=== PATIENT | female | born 2000 | race Caucasian/White ===

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

== ENCOUNTER → 2018-01-17 14:41 | Outpatient (CLI) | payer OTHER, SELFPAY ==
--- NOTE | 2018-01-17 14:42 | US_ITS ---
US OB follow up: INDICATION: ITS.REASON: US OB Growth- EFW f/u US on Calcified Placenta ORDERING PHYSICIAN: Niya Ochoa MD PATIENT AGE: 17 years TECHNIQUE: ultrasound transabdominal scanning. COMPARISON: No previous relevant studies. FINDINGS: Single viable intrauterine gestation. Cephalic position. Placenta: Post placenta grade 3. There is average amount fluid. The cervix appears satisfactory. Closed and measuring 4 cm in length. Measurements: Average ultrasound age 26w5d. Gestational Age 26w3d. Estimated due date by ultrasound age 0204/20/2018. Estimated weight 901 grams. This is 28 percentile BPD = 27w0d OFD = 28w1d HC = 27w2d AC = 26w1d FL = 26w0d Growth Percentile= 28 percentile Heart Rate = 147bpm HC/AC is 1.17 (1.04-1.22). CI is 74% (70-86%). FL/BPD is 71% (71-87%). FL/AC is 22% (20-24%). IMPRESSION: There is a single live fetus which ended in cephalic presentation. heart and body motion noted with an average ultrasound age of 26 weeks and 5 days. Estimated weight is 901 g which is 28 percentile. Placenta is posterior and grade 3.
== END ==
PROVIDERS: Visit Provider Obstetrics & Gynecology
DX: O36.5990 Maternal care for other known or suspected poor fetal growth, unspecified trimester, not applicable or unspecified (principal)
CPT/HCPCS: 76816

== ENCOUNTER 2018-02-10 17:52 | Outpatient (CLI) | payer OTHER, SELFPAY ==
[2018-02-10 18:03] VITALS: BMI 28.9
[2018-02-10 18:24] LABS: Microscopic, Urine URINE MICROSCOPIC (MICROSCOPIC)
[2018-02-10 18:25] VITALS: BP 133/79; PULSE 106; RESP 20; TEMP 36.8; O2SAT 99; BMI 28.9
[2018-02-10 18:25] LABS: Appearance,Urine SL CLOUDY (Clear); Bilirubin,Urine Negative (Negative); Blood, Urine Negative (Negative); Color,Urine YELLOW (Yellow); Glucose,Urine (UA) Negative (Negative); Ketones,Urine TRACE (Negative); Leukocyte Esterase,Urine Negative (Negative); Nitrate,Urine Negative (Negative); PH,Urine 6.5 (5.0-8.5); Protein,Urine Negative (Negative)
[2018-02-10 18:28] LABS: Mucus,Urine Trace /lpf; Squamous Epithelial Cell,Urine 50-100 #/hpf (0-5)
[2018-02-10 18:29] LABS: Amorphous Sediment,Urine Trace /lpf
== END 2018-02-10 19:05 | disposition home or self-care (01) ==
LOC: OBOUT 17:54 → OB 17:55
PROVIDERS: Visit Provider Obstetrics & Gynecology
DX: Z34.90 Encounter for supervision of normal pregnancy, unspecified, unspecified trimester (principal)
CPT/HCPCS: 59025; 81001

== ENCOUNTER → 2018-03-15 08:41 | Outpatient (CLI) | payer OTHER, SELFPAY ==
--- NOTE | 2018-03-15 08:44 | US_ITS ---
US OB biophysical profile, US OB follow up: Indication: ITS.REASON: US OB BPP Growth SD Ratio ORDERING PHYSICIAN: Niya Ochoa MD PATIENT AGE: 17 years COMPARISON: 01/17/2018 FINDINGS: The following parameters are obtained: Average ultrasound age is 33 weeks 6 days. Estimated weight is 2275 g which is 24 percentile BPD: 34 weeks 2 days OFD: 34 weeks 3 days HC: 33 weeks 6 days AC: 34 weeks 2 days FL: 33 weeks 0 days heart rate: 146 bpm. HC/AC: 1.01 Cephalic index: 79% FL/BPD: 75% FL/AC: 21% Amniotic fluid index: 13 cm Qualitative AFV: 2 breathing movements: 2 Gross body movements: 2 Tone: 2 Biophysical profile score: 8/8 No obvious anomalies evident. Placenta: Posterior grade 3 placenta. No previa Cervix: Closed and measures 3 cm IMPRESSION: There is a single live fetus which is in cephalic presentation with an average ultrasound age of 33 weeks and 6 days. KELSEY is normal at 13 cm. Biophysical profile 8 of 8. Posterior grade 3 placenta
[2018-03-15 10:19] LABS: Hematocrit 28.2 % (37.0-47.0); Hemoglobin 8.8 g/dL (12.2-16.2)
== END ==
PROVIDERS: Visit Provider Obstetrics & Gynecology
DX: O43.109 Malformation of placenta, unspecified, unspecified trimester (principal)
CPT/HCPCS: 36415; 76816; 76819; 85014; 85018

== ENCOUNTER → 2018-03-15 09:54 | Outpatient (CLI) | payer OTHER, SELFPAY | PROVIDERS: Visit Provider Obstetrics & Gynecology | DX: O99.012 Anemia complicating pregnancy, second trimester (principal) | CPT/HCPCS: 36415; 85014; 85018 ==

== ENCOUNTER → 2018-03-22 16:37 | Outpatient (CLI) | payer OTHER, SELFPAY ==
[2018-03-28 12:58] LABS: Neisseria gonorrhoeae, NAA Negative (Negative)
== END ==
PROVIDERS: Visit Provider Obstetrics & Gynecology
DX: O09.899 Supervision of other high risk pregnancies, unspecified trimester (principal); Z34.90 Encounter for supervision of normal pregnancy, unspecified, unspecified trimester
CPT/HCPCS: 86403; 87491; 87591

== ENCOUNTER → 2018-03-31 13:28 | Outpatient (CLI) | payer OTHER, SELFPAY ==
[2018-03-31 14:08] LABS: D-Dimer 828 ng/mL (0-400)
[2018-03-31 14:09] LABS: Activated Partial Thrombo Time 25.4 seconds (23.6-34.0); Fibrinogen 463 mg/dL (204-500); INR 0.93 (0.9-1.1); Prothrombin Time 9.6 seconds (9.4-11.8)
[2018-03-31 14:54] LABS: Basophils % 0.3 % (0.1-2.0); Eosinophils # 0.1 K/mm3 (0.0-0.4); Eosinophils % 1.2 % (0.1-12.0); Hematocrit 26.4 % (37.0-47.0); Hemoglobin 8.8 g/dL (12.2-16.2); Lymphocytes # 1.1 K/mm3 (0.7-4.5); Lymphocytes % 15.5 % (10-50); Mean Corpuscular HGB Conc 33.4 g/dL (31.8-35.4); Mean Corpuscular Hemoglobin 26.1 pg (27.0-31.2); Mean Corpuscular Volume 78.2 fl (81-99); Mean Platelet Volume 7.7 fl (7.4-10.4); Monocytes # 0.2 K/mm3 (0.1-1.0); Neutrophils # 5.7 K/mm3 (1.8-7.8); Neutrophils % 80.1 % (37.0-80.0); Platelet Count 199 K/mm3 (142-424); Red Blood Count 3.37 M/mm3 (4.20-5.40); Red Cell Distribution Width 16.1 % (11.5-17.5); White Blood Count 7.1 K/mm3 (4.5-13.0)
[2018-03-31 15:06] LABS: Alanine Aminotransferase 15 U/L (12-78); Anion Gap 16.6 mEq/L (5-15); Aspartate Amino Transferase 13 U/L (15-37); Blood Urea Nitrogen 8 mg/dL (7-18); Calcium 8.5 mg/dL (8.5-10.1); Carbon Dioxide 20 mmol/L (21.0-32.0); Chloride 103 mmol/L (98-107); Creatinine,Serum 0.57 mg/dL (0.55-1.02); Estimated Glomerular Filt Rate 137 ml/min (>60); GFR (African American) 165 ML/MIN (>60); Glucose 129 mg/dL (74-106); Potassium 3.6 mmoL/L (3.5-5.1); Sodium 136 mmol/L (136-145); Uric Acid 3.8 mg/dL (2.6-7.2)
[2018-03-31 16:19] LABS: Creatinine,Urine Random 102 mg/dL (20-320); Total Protein,Urine Random 23.6 mg/dL (0.0-11.9)
[2018-03-31 16:47] LABS: Collection Time,Urine 24 hours; Creatinine 24 Hour,Urine 918 mg/24hr (630-2500); Total Protein 24 Hour,Urine 212 mg/24 hr (40-90); Total Volume,Urine 900 mL (600-1600)
[2018-03-31 16:49] LABS: Creatinine Clearance Urine 101.2 mL/min (25-115); Patient Height,Urine 65 inches; Patient Weight,Urine 186 lbs
== END ==
PROVIDERS: Visit Provider Obstetrics & Gynecology
DX: O13.9 Gestational [pregnancy-induced] hypertension without significant proteinuria, unspecified trimester (principal)
CPT/HCPCS: 36415; 80048; 82575; 84155; 84450; 84460; 84550; 85025; 85378; 85384; 85610; 85730

== ENCOUNTER 2018-04-02 11:44 | Outpatient (CLI) | payer OTHER, SELFPAY ==
[2018-04-02 12:02] VITALS: BP 134/77; PULSE 114; RESP 18; TEMP 36.7; O2SAT 98; BMI 30.9
== END 2018-04-02 13:00 | disposition home or self-care (01) ==
LOC: OBOUT 11:46 → OB 11:47
PROVIDERS: Visit Provider Obstetrics & Gynecology
DX: O13.3 Gestational [pregnancy-induced] hypertension without significant proteinuria, third trimester (principal); Z3A.37 37 weeks gestation of pregnancy
CPT/HCPCS: 59025

== ENCOUNTER → 2018-04-06 13:48 | Outpatient (CLI) | payer OTHER, SELFPAY ==
--- NOTE | 2018-04-06 13:51 | US_ITS ---
US OB biophysical profile: Indication: ITS.REASON: US OB- BPP S/D Ratio-Grade 3 Placenta PIH ORDERING PHYSICIAN: Delonte Barrera MD PATIENT AGE: 17 years FINDINGS: The following parameters are obtained: There is a single live fetus present in cephalic presentation. heart tones are noted with heart rate of 142 bpm Average ultrasound age is 37w5d. Estimated due date by ultrasound is 04/22/2018. Estimated weight is Estimated weight Amniotic fluid index: 14 cm Qualitative AFV: 2 breathing movements: 2 Gross body movements: 2 Tone: 2 Biophysical profile score: 8/8 Placenta: Post/Lat GR 3 Cervix: Appears closed and measures 3 cm IMPRESSION: Single live intrauterine gestation in cephalic presentation. breathing movement noted Biophysical profile 8 of a with normal amniotic fluid index Posterior lateral grade 3 placenta
== END ==
PROVIDERS: Visit Provider Nurse Practitioner Obstetrics & Gynecology
DX: O13.9 Gestational [pregnancy-induced] hypertension without significant proteinuria, unspecified trimester (principal); O43.109 Malformation of placenta, unspecified, unspecified trimester
CPT/HCPCS: 76819

== ENCOUNTER 2018-04-06 21:18 | Inpatient (IN) ==
[2018-04-06 22:17] LABS: Basophils % 0.2 % (0.1-2.0); Eosinophils % 0.4 % (0.1-12.0); Hemoglobin 8.8 g/dL (12.2-16.2); Lymphocytes # 1.3 K/mm3 (0.7-4.5); Mean Corpuscular HGB Conc 31.8 g/dL (31.8-35.4); Mean Corpuscular Hemoglobin 25.3 pg (27.0-31.2); Mean Corpuscular Volume 79.7 fl (81-99); Mean Platelet Volume 9.2 fl (7.4-10.4); Monocytes # 0.3 K/mm3 (0.1-1.0); Monocytes % 3.6 % (1.7-9.3); Neutrophils # 6.9 K/mm3 (1.8-7.8); Neutrophils % 80.8 % (37.0-80.0); Platelet Count 198 K/mm3 (142-424); Red Blood Count 3.46 M/mm3 (4.20-5.40); Red Cell Distribution Width 16.4 % (11.5-17.5); White Blood Count 8.5 K/mm3 (4.5-13.0)
[2018-04-06 22:19] LABS: Hematocrit 27.6 % (37.0-47.0)
[2018-04-06 22:28] LABS: Anion Gap 14.5 mEq/L (5-15); Calcium 9.1 mg/dL (8.5-10.1); Potassium 3.5 mmoL/L (3.5-5.1); Uric Acid 3.1 mg/dL (2.6-7.2)
[2018-04-06 22:36] LABS: Microscopic, Urine URINE MICROSCOPIC (MICROSCOPIC)
[2018-04-06 22:38] LABS: Appearance,Urine CLEAR (Clear); Bilirubin,Urine Negative (Negative); Blood, Urine 2+ (Negative); Color,Urine YELLOW (Yellow); Glucose,Urine (UA) Negative (Negative); Ketones,Urine Negative (Negative); Leukocyte Esterase,Urine TRACE (Negative); PH,Urine 8.5 (5.0-8.5); Protein,Urine Negative (Negative)
[2018-04-06 22:45] LABS: Activated Partial Thrombo Time 25.4 seconds (23.6-34.0); INR 0.91 (0.9-1.1); Prothrombin Time 9.4 seconds (9.4-11.8)
[2018-04-06 23:08] LABS: Squamous Epithelial Cell,Urine 20-50 #/hpf (0-5)
--- NOTE | 2018-04-07 17:36 | Progress Note ---
[facility] Anesthesia Checklist - Patient Identification Patient Identification: Arm Band, Verbal (Name & ) - Structural Data Admitted From: Inpatient Planned Operative Procedure/s: labor epidural - Additional verifications Patient : Yes Anesthesia Reactions: No Hx Blood Transfusions: No Blood Transfusion Reaction: No Cephalosporin Allergy: No Previous Colonoscopy: No - Cardiovascular Assessment Heart Sounds: S1 & S2 Pulse Strength: Baseline Pulse Rhythm: Regular Peripheral Edema: No - Airway Assessment C-Spine Mobility Assessed: Yes TMJ Mobility Assessed: Yes Dentition: Good Dentition - Neurological Assessment Level of Consciousness: Awake, Alert, Appropriate Hx Seizures: No Numbness or tingling in extremities: No - Anesthesia Plan Anesthesia Risk discussed: Yes Anesthesia Plan: Verified ASA Class: II Anesthesia Type: Epidural [facility] History I have reviewed the patient's past medical history: Yes Medical History: Denies:: Anxiety, Depression, Migraine, MRSA, Seizures Have you ever received a pneumonia vaccine?: No Have you received a flu vaccine this season?: Yes Other Surgeries: Yes: No Previous Surgery. No: Amputation: No Fractures: No - *Social History Educational Level: Completed High School Smoking Status: Never smoker Alcohol Intake: never Substance Use Type: denies use Occupational Status: employed Housing: house Household Members: family Travel in the last 8 weeks: None - Psychiatric History Expresses thoughts of harming self/others: None Suicide Plan Description: No Plan Pschychiatric History:: Denies:: Anxiety, Depression *Family Hx:: Cancer Para: 0
--- NOTE | 2018-04-07 23:01 | History & Physical Report ---
OB - H&P: HPI Antepartum - History of Present Illness Chief complaint: elevated blood pressure History of present illness: 17 year old G1 @ 37 2 presented to triage late last night with complaint of elevated blood pressure. Patient has been on bedrest for 2 weeks with intermittently elevated blood pressures. 24 hour urine total protein was less than 300mg and serum PIH labs were negative. She was given a Rx for blood pressure cuff and advised to check BP several times/day. Last night, she had a reading of 160/100 and presented to triage for evaluation. BP here was 140-150 and she was kept for IOL for PIH at term. Favorable cervix 2cm. Other complications of include late presentation with first visit at 20+ wks, + gonorrhea and + chlamydia noted on labs at 20 wks, moderate anemia with Hgb 8.8 antepartum and grade 2 placenta noted as early as 20 wks. Grade 3 placenta noted on f/u ultrasound 34 wks. Never smoker, normal KELSEY and reassuring testing. - History of Present Obstetrical complications: gestational hypertension, other (late presentation 20w, severe anemia, gonorrhea, chlamydia, grade 2-3 placenta) - Labs GBS status: negative [facility] History I have reviewed the patient's past medical history: Yes Medical History: Denies:: Anxiety, Depression, Migraine, MRSA, Seizures Have you ever received a pneumonia vaccine?: No Have you received a flu vaccine this season?: Yes Other Medical History: Reports: Anemia. Denies: Blood Transfusion Reaction Other Surgeries: Yes: No Previous Surgery. No: Amputation: No Fractures: No - *Social History Educational Level: Completed High School Smoking Status: Never smoker Alcohol Intake: never Substance Use Type: denies use Occupational Status: employed Housing: house Household Members: family Travel in the last 8 weeks: None - Psychiatric History Expresses thoughts of harming self/others: None Suicide Plan Description: No Plan Pschychiatric History:: Denies:: Anxiety, Depression *Family Hx:: Cancer Para: 0 Review of Systems - Review of Systems CONSTITUTIONAL: no fever/chills HEENT: no visual changes PULMONARY: no shortness of breath or difficulty breathing CV: no racing heart, palpitations or chest pain ABD: no abdominal pain, N/V : irreg ctx; no vb or lof SKIN: no new rash or skin lesions EXT: no edema NEURO: no headache PSYCH: no current anxiety/depression OB: normal FM Meds Home Medications Medication Instructions Recorded Confirmed Type 1 tab PO DAILY 12/06/17 04/05/18 History vitamin,calcium,xqomdxta-[id number] acid tablet ferrous sulfate 325 mg (65 mg 325 mg PO DAILY 12/12/17 04/05/18 History iron) tablet,delayed release labetalol 100 mg tablet 100 mg PO BID #60 tab 04/05/18 04/05/18 Rx miscellaneous medical supply misc See Dose Instructions .ROUTE 04/05/18 04/05/18 Rx .MEDSUPPLY #1 each Allergies Allergy/AdvReac Type Severity Reaction Status Date / Time NKDA Allergy Unknown Uncoded 04/05/18 14:33 OB - H&P: Exam - Physical Exam Vital signs: Temp Pulse Resp BP Pulse Ox 98.2 F 94 H 18 142/95 H 98 04/06/18 21:46 04/06/18 21:46 04/06/18 21:46 04/06/18 21:46 04/06/18 21:46 Narrative: CONSTITUTIONAL: no acute distress HEENT: mucous membranes moist PULMONARY: breathing unlabored without audible wheezes CV: no tachycardia or visible JVD; normal LE peripheral pulses ABD: soft, NT/ND, no guarding. Gravid uterus. : cervix 2/50/-2 SKIN: no visible rash or lesions HEME: no lymphadenopathy EXT: 1+ edema LEs NEURO: alert/oriented, no altered mental status PSYCH: appropriate mood and demeanor without visible anxiety/depression NST: Basline: 140 Variability: moderate Accelerations: yes Decelerations: intermittent mild variable decelerations; no late decelerations Impression: Reactive, Category 1 OB - Results - Labs Labs: Short CBC 04/06/18 Range/Units 22:10 WBC 8.5 (4.5-13.0) K/mm3 Hgb 8.8 L (12.2-16.2) g/dL Hct 27.6 L (37.0-47.0) % Plt Count 198 (142-424) K/mm3 BMP 04/06/18 22:10 Sodium 136 Potassium 3.5 Chloride 104 Carbon Dioxide 21 BUN 8 Creatinine 0.51 L Glucose 114 H Calcium 9.1 Liver Function 04/06/18 Range/Units 22:10 AST 10 L (15-37) U/L ALT 15 (12-78) U/L Urine 04/06/18 Range/Units 21:30 Urine Color Yellow (Yellow) Urine Appearance Clear (Clear) Urine pH 8.5 (5.0-8.5) Ur Specific [place] 1.010 (1.005-1.030) Urine Protein Negative (Negative) Urine Glucose (UA) Negative (Negative) OB - A/P Antepartum (1) 37 weeks gestation of Current visit: Yes Status: Acute (2) Hypertension complicating Current visit: Yes Status: Acute (3) Late care affecting in second trimester Current visit: Yes Status: Acute (4) High risk teen Current visit: Yes Status: Acute (5) Placental abnormality, antepartum Problem details: 20 wk US: "Placenta is posterior and grade 2 and appears more mature than expected for a 20 week gestation" Current visit: Yes Status: Acute (6) Gonorrhea affecting Current visit: Yes Status: Acute (7) Chlamydia infection affecting Current visit: Yes Status: Acute (8) Anemia complicating , second trimester Problem details: Hgb 9.7 on 12/06/17 Current visit: Yes Status: Acute - Additional Plan Additional Information:: Admit to L&D Cervical ripening with cervidil followed by pitocin augmentation Continuous monitoring and BP monitoring Patient aware of elevated risk for blood transfusion following delivery
--- NOTE | 2018-04-07 23:24 | Procedure Note ---
- Delivery Note Delivery Date:: 04/07/18 Delivery Time:: 22:08 Anesthesia Type: Epidural Was labor medically induced?: Yes Induction method: per pitocin protocol Gestational age (weeks): 37 delivered prior to 39 weeks?: Yes Justification for early elective delivery:: Pre-eclampsia Gender: Female at 1 minute: 8 at 5 minutes: 9 Delivery Procedure:: Spontaneous vaginal delivery of vigorous liveborn female infant over intact perineum. Apgars: 8 & 9 Delivery uncomplicated; no nuchal cord or shoulder dystocia with delivery taken to warmer for nursing assessment and suction immediately after umbilical cord clamped/cut Placenta spontaneously expressed and examined; noted to be complete/intact. Grossly abnormal appearing. Vulva, vagina, and cervix inspected; 2nd degree laceration repaired with 2-0 vicryl in layers EBL: 400cc All sponge/needle/instrument counts correct at conclusion of procedure Disposition: Mom/baby stable to recovery in LDRP Placenta sent for pathology Laceration:: vaginal Placental Delivery Description: Spontaneous
[2018-04-08 05:56] LABS: Hematocrit 22.4 % (37.0-47.0); Hemoglobin 6.8 g/dL (12.2-16.2)
--- NOTE | 2018-04-08 15:33 | Progress Note ---
Internal Medicine - PN: Subj *Date: 04/08/18 *Time: 15:29 Interval history: PPD #1 No complaints Ambulating and voiding without difficulty Fannie reg diet Chronic anemia with initial Hgb at presentation for care 9.0 and Hgb at admission for delivery 8.8 EBL 400cc with delivery and Hgb PPD #1 6.8 Patient is asymptomatic with anemia, other than mild tachycardia Recommended transfusion with current Hgb and expectation for continued lochia, and patient accepted Finishing first unit PRBCs now with plan to give 2 total units and recheck Hgb early am Exam Vital signs and Labs for Last 24 Hours: Temp Pulse Resp BP Pulse Ox 98.2 F 106 H 20 132/93 H 98 04/08/18 15:20 04/08/18 15:20 04/08/18 15:20 04/08/18 15:20 04/08/18 15:20 Laboratory Results - last 24 hr 04/06/18 22:10: Blood Type O Positive, Antibody Screen Negative, Crossmatch (AHG) See Detail 04/08/18 05:40: Hgb 6.8 L*, Hct 22.4 L* I & O for Last 24 hours: Intake & Output 04/06/18 04/07/18 04/08/18 04/09/18 11:59 11:59 11:59 11:59 Intake Total 300 / 300 Balance 300 / 300 Weight 191 lb Narrative: CONSTITUTIONAL: no acute distress, pale appearing HEENT: mucous membranes moist PULMONARY: breathing unlabored without audible wheezes CV: + tachycardia; normal LE peripheral pulses ABD: soft, NT/ND, no guarding : fundus firm at/below umbilicus SKIN: no visible rash or lesions EXT: 1+ edema LEs NEURO: alert/oriented, no altered mental status PSYCH: appropriate mood and demeanor without visible anxiety/depression Assessment and Plan (1) 37 weeks gestation of Current visit: Yes Status: Acute Category: Medical Code(s): Z3A.37 - 37 weeks gestation of (2) Hypertension complicating Current visit: Yes Status: Acute Category: Medical Code(s): O16.9 - Unspecified maternal hypertension, unspecified trimester (3) Late care affecting in second trimester Current visit: Yes Status: Acute Category: Medical Code(s): O09.32 - Supervision of with insufficient care, second trimester (4) High risk teen Current visit: Yes Status: Acute Category: Medical (5) Placental abnormality, antepartum Problem details: 20 wk US: "Placenta is posterior and grade 2 and appears more mature than expected for a 20 week gestation" Current visit: Yes Status: Acute Category: Medical (6) Gonorrhea affecting Current visit: Yes Status: Acute Category: Medical (7) Chlamydia infection affecting Current visit: Yes Status: Acute Category: Medical Code(s): O98.819 - Other maternal infectious and parasitic diseases complicating , unspecified trimester; A74.9 - Chlamydial infection, unspecified (8) Chronic anemia Current visit: Yes Status: Acute Category: Medical Code(s): D64.9 - Anemia, unspecified (9) Acute blood loss anemia Current visit: Yes Status: Acute Category: Medical Code(s): D62 - Acute posthemorrhagic anemia - Assessment and plan all Dx Assessment and Plan for all problems:: Continue routine care Transfusion 2 units PRBCs Repeat Hgb 2 hours post transfusion and 5am tomorrow Continue Vijay
[2018-04-08 18:31] VITALS: BP 141/103
[2018-04-08 19:22] LABS: Hematocrit 29.7 % (37.0-47.0); Hemoglobin 9.7 g/dL (12.2-16.2)
[2018-04-09 05:41] LABS: Hemoglobin 8.7 g/dL (12.2-16.2)
[2018-04-09 05:42] LABS: Hematocrit 27.8 % (37.0-47.0)
--- NOTE | 2018-04-09 12:21 | Discharge Summary ---
General - General Admission date:: 04/06/18 Discharge date: 04/09/18 HPI HPI: G1 admitted at 37 2/7 with elevated BP and grade 3 placenta IOL cervidil/pitocin with uncomplicated Admission Hgb 8.8 with drop to 6.8 on PPD #1 Transfused 2 units PRBCs with post-transfusion Hgb 8.7 Discharged home on PPD #2 with instructions to continue [facility] Hospital Course Hospital Course: as per HPI Rhogam Administration: Not Indicated Objective Vital signs: Temp Pulse Resp BP Pulse Ox 98.2 F 110 H 18 141/103 H 100 04/08/18 18:28 04/08/18 18:28 04/08/18 18:28 04/08/18 18:28 04/08/18 18:28 Narrative: CONSTITUTIONAL: no acute distress HEENT: mucous membranes moist PULMONARY: breathing unlabored without audible wheezes CV: no tachycardia or visible JVD; normal LE peripheral pulses ABD: soft, NT/ND, no guarding : fundus firm at/below umbilicus SKIN: no visible rash or lesions EXT: 1+ edema LEs NEURO: alert/oriented, no altered mental status PSYCH: appropriate mood and demeanor without visible anxiety/depression Results Labs on day of discharge: Labs from last 24 hours 04/09/18 04/08/18 04/06/18 05:15 19:08 22:10 Hgb 8.7 L D 9.7 L D Hct 27.8 L 29.7 L Blood Type O Positive Antibody Screen Negative Crossmatch (AHG) See Detail DS: Diagnosis - Discharge Diagnosis (1) 37 weeks gestation of Status: Acute (2) Hypertension complicating Status: Acute (3) Late care affecting in second trimester Status: Acute (4) High risk teen Status: Acute (5) Placental abnormality, antepartum Status: Acute Problem details: 20 wk US: "Placenta is posterior and grade 2 and appears more mature than expected for a 20 week gestation" (6) Gonorrhea affecting Status: Acute (7) Chlamydia infection affecting Status: Acute (8) Chronic anemia Status: Acute (9) Acute blood loss anemia Status: Acute Discharge Plan - Patient Discharge Instructions ACTIVITY: Continue current activity DIET: regular diet - Follow up Plan Disposition: Home, Self-Retirement Medications: Home Medications Medication Instructions Recorded Confirmed Type ferrous sulfate 325 mg (65 mg 325 mg PO DAILY 10/02/18 01/27/19 History iron) tablet,delayed release Labetalol HCl 100 mg PO BID 04/08/18 04/08/18 History Pnv95/Iron Fum/Folic Acid 1 each PO DAILY 04/08/18 04/08/18 History [ Tablet] Prescriptions/Medication Reconciliation: Continue Pnv95/Iron Fum/Folic Acid [ Tablet] 1 each PO DAILY Labetalol HCl 100 mg PO BID No Action ferrous sulfate 325 mg (65 mg iron) tablet,delayed release 325 mg PO DAILY
== END 2018-04-09 13:12 | disposition home or self-care (01) | DRG 807 ==
LOC: OBOUT 21:18 → OB 21:22
PROVIDERS: ADMIT Obstetrics & Gynecology; ATTEND Obstetrics & Gynecology
CPT/HCPCS: 36415; 59025; 76819; 80048; 81001; 83735; 84450; 84460; 84550; 85014; 85018; 85025; 85378; 85384; 85610; 85730; 86850; P9016

== ENCOUNTER → 2018-05-24 10:49 | Outpatient (CLI) | payer OTHER, SELFPAY ==
[2018-05-28 13:28] LABS: Neisseria gonorrhoeae, NAA Negative (Negative)
== END ==
PROVIDERS: Visit Provider Obstetrics & Gynecology
DX: Z39.2 Encounter for routine postpartum follow-up (principal)
CPT/HCPCS: 87491; 87591

== ENCOUNTER → 2019-09-27 12:02 | Outpatient (CLI) | payer OTHER, SELFPAY | PROVIDERS: Visit Provider Obstetrics & Gynecology | DX: Z32.00 Encounter for pregnancy test, result unknown (principal) | CPT/HCPCS: 36415; 84702 ==

== ENCOUNTER → 2019-10-07 13:52 | Outpatient (CLI) | payer OTHER, SELFPAY ==
--- NOTE | 2019-10-07 13:55 | US_ITS ---
PROCEDURE: US OB >= 14 WEEKS FETUS CLINICAL INDICATION: US OB Dates- LMP 07/07/2019 COMPARISON: OBBIO US OB biophysical profile from 04/06/2018 FINDINGS: Single viable intrauterine gestation. Placenta: Anteriorplacenta. There is average amount fluid. The cervix appears satisfactory. Measurements: Average ultrasound age 13weeks 6days. Gestational Age 13weeks 6days Estimated due date by ultrasound age 0104/07/2020. Estimated weight 83g BPD = 13weeks 6days OFD = HC = 13weeks 6days AC = 13weeks 6days FL = 13weeks 6days Growth Percentile= 69Percent% Heart Rate = 163bpm HC/AC is 1.2 CI is 0.74 FL/BPD is 0.56 FL/AC is 0.18 Right ovary appears within normal limits. Left ovary is not well visualized. No adnexal mass or cyst is seen. IMPRESSION: Single alive intrauterine is seen with an estimated gestational age: 13 weeks 6 days and HASMUKH: 04/07/2020. Based on LMP gestational age: 13 weeks 1 day and HASMUKH: 04/12/2020. Dictated by: Akilah Robles 10/07/2019 15:09 Electronically signed by Akilah Robles in [facility] 10/07/2019 15:09
== END ==
PROVIDERS: Visit Provider Obstetrics & Gynecology
DX: O26.841 Uterine size-date discrepancy, first trimester (principal)
CPT/HCPCS: 76805

== ENCOUNTER → 2019-11-19 12:51 | Outpatient (CLI) | payer OTHER, SELFPAY ==
--- NOTE | 2019-11-19 12:51 | US_ITS ---
PROCEDURE: US OB /MATERNAL DETAIL CLINICAL INDICATION: US OB Complete Anatomy exam COMPARISON: US US OB >= 14 WEEKS FETUS from 10/07/2019 FINDINGS: Single viable intrauterine gestation. Cephalic position. Placenta: Anteriorplacenta grade 1. There is average amount fluid. The cervix appears satisfactory. Closed and measuring 4.8 cm transabdominal in length. Complete survey performed and was unremarkable on the submitted images as in PACS. No discrete anomalies identified on survey imaging by technologist. Active fetus. Three-vessel cord with satisfactory umbilical cord insertion. 4- chamber heart noted. Survey of brain & ventricles Unremarkable. Face and neck survey unremarkable. Diaphragm and chest views unremarkable. Abdomen: Both kidneys noted and unremarkable. Stomach noted and satisfactory. Spine: Survey of the spine satisfactory with no anomalies identified nor imaged. Both arms and legs noted. Amniotic Fluid: Adequate. Maternal adnexa: No significant findings. Measurements: Average ultrasound age 19weeks 6days. Gestational Age 20weeks Estimated due date by ultrasound age 0104/08/2020. Estimated weight 320g BPD = 20weeks OFD = 20weeks HC = 19weeks 1day AC = 20weeks FL = 20weeks Growth Percentile= 40Percent% Heart Rate = 156bpm Cerebellum = 20weeks Humerus = 20weeks 3days HC/AC is 1.12 CI is 0.8 FL/BPD is 0.69 FL/AC is 0.22 IMPRESSION: There is a live IUP in cephalic presentation with an average ultrasound age 19 weeks and 6 days. No obvious anomalies. Please see above for detail. Dictated by: Trevor Carrasco MD 11/20/2019 04:29 Trevor Carrasco MD in [facility] 11/20/2019 04:29
== END ==
PROVIDERS: Visit Provider Obstetrics & Gynecology
DX: Z36.0 Encounter for antenatal screening for chromosomal anomalies (principal)
CPT/HCPCS: 76811

== ENCOUNTER → 2019-11-21 09:56 | Outpatient (CLI) | payer OTHER, SELFPAY ==
[2019-11-25 13:35] LABS: Neisseria gonorrhoeae, NAA Negative (Negative)
== END ==
PROVIDERS: Visit Provider Obstetrics & Gynecology
DX: Z86.19 Personal history of other infectious and parasitic diseases (principal)
CPT/HCPCS: 87491; 87591

== ENCOUNTER → 2019-11-22 13:45 | Outpatient (CLI) | payer OTHER, SELFPAY ==
[2019-11-22 15:11] LABS: Basophils % 0.4 % (0.1-2.0); Eosinophils % 0.8 % (0.1-12.0); Hematocrit 28.6 % (37.0-47.0); Hemoglobin 9.4 g/dL (12.2-16.2); Lymphocytes # 0.9 K/mm3 (0.7-4.5); Lymphocytes % 22.9 % (10-50); Mean Corpuscular HGB Conc 32.8 g/dL (31.8-35.4); Mean Corpuscular Hemoglobin 24.1 pg (27.0-31.2); Mean Corpuscular Volume 73.6 fl (81-99); Mean Platelet Volume 8.9 fl (7.4-10.4); Monocytes # 0.2 K/mm3 (0.1-1.0); Monocytes % 5.1 % (1.7-9.3); Neutrophils # 2.7 K/mm3 (1.8-7.8); Neutrophils % 70.8 % (37.0-80.0); Platelet Count 146 K/mm3 (142-424); Red Blood Count 3.89 M/mm3 (4.20-5.40); Red Cell Distribution Width 16.4 % (11.5-17.5); White Blood Count 3.8 K/mm3 (4.8-10.8)
[2019-11-24 09:06] LABS: Covid-19 Nasal PCR Sendout UK Detected
[2019-11-24 11:23] LABS: Rapid Plasma Reagin Ab Titer Non Reactive (NonRea<1:1)
[2019-11-24 13:08] LABS: HIV Screen 4th Generation wRfx Non Reactive (Non Reactive)
[2019-11-24 13:11] LABS: Hepatitis B Surface Antigen Negative (Negative); Hepatitis C Antibody <0.1 s/co ratio (0.0-0.9)
[2019-11-25 13:35] LABS: Rubella Antibodies, IgG 1.35 index (Immune >0.99)
== END ==
PROVIDERS: Obstetrics & Gynecology; Visit Provider Nurse Practitioner Family
DX: Z34.90 Encounter for supervision of normal pregnancy, unspecified, unspecified trimester (principal)
CPT/HCPCS: 36415; 85025; 86592; 86703; 86762; 86850; 87340; 87380; G0432; U0003

== ENCOUNTER 2020-02-04 05:50 | Outpatient (CLI) | payer OTHER, SELFPAY ==
[2020-02-04 06:20] VITALS: BMI 27.4
[2020-02-04 06:37] LABS: Microscopic, Urine URINE MICROSCOPIC (MICROSCOPIC)
[2020-02-04 06:39] LABS: Appearance,Urine CLEAR (Clear); Bilirubin,Urine Negative (Negative); Blood, Urine Negative (Negative); Color,Urine YELLOW (Yellow); Glucose,Urine (UA) Negative (Negative); Ketones,Urine Negative (Negative); Leukocyte Esterase,Urine TRACE (Negative); Nitrate,Urine Negative (Negative); PH,Urine 7.5 (5.0-8.5); Protein,Urine Negative (Negative); Urobilinogen,Urine 0.2 EU/dl (0.2)
[2020-02-04 06:42] LABS: RBC,Urine Occasional #/hpf (0-3); Squamous Epithelial Cell,Urine Occasional #/hpf (0-5)
[2020-02-04 06:48] VITALS: BP 114/81; PULSE 90; RESP 18; TEMP 36.9; O2SAT 100; BMI 27.4
[2020-02-04 06:51] LABS: Barbiturates Screen,Urine Negative ng/ml (<200)
[2020-02-04 06:52] LABS: Amphetamine/Metha Screen,Urine Negative ng/ml (<1000); Benzodiazepines Screen,Urine Negative ng/ml (<200)
[2020-02-04 06:53] LABS: Cannabinoid Screen,Urine Negative ng/ml (<50)
[2020-02-04 06:54] LABS: Cocaine Screen,Urine Negative ng/ml (<300); Methadone Screen,Urine Negative ng/ml (<300)
[2020-02-04 06:55] LABS: Opiate Screen,Urine Negative ng/ml (<300); Phencyclidine Screen,Urine Negative ng/ml (<25)
== END 2020-02-04 09:40 | disposition home or self-care (01) ==
LOC: OBOUT 05:55 → OB 06:00
PROVIDERS: PCP Obstetrics & Gynecology; Visit Provider Nurse Practitioner Obstetrics & Gynecology
DX: O26.893 Other specified pregnancy related conditions, third trimester (principal); Z3A.31 31 weeks gestation of pregnancy; R10.32 Left lower quadrant pain
CPT/HCPCS: 59025; 80305; 81001; 96360; 96365; 96366; 96372; G0463

== ENCOUNTER → 2020-02-13 12:41 | Outpatient (CLI) | payer OTHER, SELFPAY ==
[2020-02-13 16:01] LABS: Glucose 1 Hour 152 mg/dL (74-100); Glucose,Fasting 86 mg/dl (74-100)
[2020-02-13 17:06] LABS: Basophils % 0.3 % (0.1-2.0); Eosinophils # 0.1 K/mm3 (0.0-0.4); Eosinophils % 0.7 % (0.1-12.0); Hematocrit 30.3 % (37.0-47.0); Hemoglobin 9.3 g/dL (12.2-16.2); Lymphocytes # 1.2 K/mm3 (0.7-4.5); Lymphocytes % 16.3 % (10-50); Mean Corpuscular HGB Conc 30.9 g/dL (31.8-35.4); Mean Corpuscular Hemoglobin 23.1 pg (27.0-31.2); Mean Platelet Volume 9.2 fl (7.4-10.4); Monocytes # 0.3 K/mm3 (0.1-1.0); Monocytes % 4.5 % (1.7-9.3); Neutrophils # 5.9 K/mm3 (1.8-7.8); Neutrophils % 78.2 % (37.0-80.0); Platelet Count 208 K/mm3 (142-424); Red Blood Count 4.04 M/mm3 (4.20-5.40); Red Cell Distribution Width 17.2 % (11.5-17.5); White Blood Count 7.5 K/mm3 (4.8-10.8)
== END ==
PROVIDERS: Visit Provider Obstetrics & Gynecology
DX: Z34.90 Encounter for supervision of normal pregnancy, unspecified, unspecified trimester (principal)
CPT/HCPCS: 36415; 82951; 85025

== ENCOUNTER → 2020-02-26 12:48 | Outpatient (CLI) | payer OTHER, SELFPAY ==
[2020-02-26 13:41] LABS: Glucose,Fasting 90 mg/dl (74-100)
[2020-02-26 15:37] LABS: Glucose 2 Hour 141 mg/dL (74-100)
[2020-02-26 15:58] LABS: Glucose 1 Hour 158 mg/dL (74-100)
[2020-02-26 16:33] LABS: Glucose 3 Hour 90 mg/dL (74-100)
== END ==
PROVIDERS: Visit Provider Obstetrics & Gynecology
DX: Z34.90 Encounter for supervision of normal pregnancy, unspecified, unspecified trimester (principal)
CPT/HCPCS: 36415; 82951

== ENCOUNTER 2020-03-24 23:45 | Outpatient (CLI) | payer OTHER, SELFPAY ==
[2020-03-24 23:56] VITALS: BMI 29.8
[2020-03-25 00:08] LABS: Microscopic, Urine URINE MICROSCOPIC (MICROSCOPIC)
[2020-03-25 00:19] LABS: Appearance,Urine CLEAR (Clear); Bilirubin,Urine Negative (Negative); Blood, Urine Negative (Negative); Color,Urine YELLOW (Yellow); Glucose,Urine (UA) Negative (Negative); Ketones,Urine Negative (Negative); Leukocyte Esterase,Urine Negative (Negative); Nitrate,Urine Negative (Negative); Protein,Urine Negative (Negative)
[2020-03-25 00:32] VITALS: BP 134/91; PULSE 97; RESP 18; TEMP 37.2; O2SAT 99; BMI 29.8
[2020-03-25 00:37] LABS: Amphetamine/Metha Screen,Urine Negative ng/ml (<1000)
[2020-03-25 00:38] LABS: Barbiturates Screen,Urine Negative ng/ml (<200); Benzodiazepines Screen,Urine Negative ng/ml (<200)
[2020-03-25 00:39] LABS: Cannabinoid Screen,Urine Negative ng/ml (<50)
[2020-03-25 00:40] LABS: Cocaine Screen,Urine Negative ng/ml (<300); Methadone Screen,Urine Negative ng/ml (<300)
[2020-03-25 00:41] LABS: Opiate Screen,Urine Negative ng/ml (<300)
[2020-03-25 00:42] LABS: Phencyclidine Screen,Urine Negative ng/ml (<25)
[2020-03-25 00:44] LABS: Bacteria,Urine Trace /lpf
[2020-03-25 01:29] VITALS: BP 133/88
== END 2020-03-25 01:30 | disposition home or self-care (01) ==
LOC: OBOUT 23:47 → OB 23:49
PROVIDERS: Visit Provider Obstetrics & Gynecology
DX: R10.31 Right lower quadrant pain (principal)
CPT/HCPCS: 59025; 80305; 81001; 96365; G0463

== ENCOUNTER → 2020-03-25 14:52 | Outpatient (CLI) | payer OTHER, SELFPAY ==
[2020-03-17 10:22] LABS: Neisseria gonorrhoeae, NAA Negative (Negative)
== END ==
PROVIDERS: Visit Provider Obstetrics & Gynecology
DX: Z34.90 Encounter for supervision of normal pregnancy, unspecified, unspecified trimester (principal)
CPT/HCPCS: 86403; 87491; 87591

== ENCOUNTER 2020-03-27 04:53 | Inpatient (IN) | payer OTHER, SELFPAY ==
[2020-03-27 05:01] VITALS: BMI 29.9
[2020-03-27 05:17] VITALS: BP 131/88; PULSE 99; RESP 18; TEMP 36.8; O2SAT 98; BMI 29.9
[2020-03-27 05:44] LABS: Microscopic, Urine URINE MICROSCOPIC (MICROSCOPIC)
[2020-03-27 06:21] LABS: Basophils % 0.3 % (0.1-2.0); Eosinophils # 0.1 K/mm3 (0.0-0.4); Eosinophils % 0.7 % (0.1-12.0); Hematocrit 30.5 % (37.0-47.0); Hemoglobin 9.7 g/dL (12.2-16.2); Lymphocytes % 14.8 % (10-50); Mean Corpuscular HGB Conc 31.8 g/dL (31.8-35.4); Mean Corpuscular Hemoglobin 23.8 pg (27.0-31.2); Mean Corpuscular Volume 74.9 fl (81-99); Mean Platelet Volume 8.8 fl (7.4-10.4); Monocytes # 0.6 K/mm3 (0.1-1.0); Monocytes % 4.6 % (1.7-9.3); Neutrophils # 10.7 K/mm3 (1.8-7.8); Neutrophils % 79.6 % (37.0-80.0); Platelet Count 215 K/mm3 (142-424); Red Blood Count 4.07 M/mm3 (4.20-5.40); Red Cell Distribution Width 19.8 % (11.5-17.5); White Blood Count 13.4 K/mm3 (4.8-10.8)
[2020-03-27 07:01] LABS: Appearance,Urine SL CLOUDY (Clear); Bilirubin,Urine Negative (Negative); Blood, Urine Negative (Negative); Color,Urine YELLOW (Yellow); Glucose,Urine (UA) Negative (Negative); Ketones,Urine Negative (Negative); Leukocyte Esterase,Urine TRACE (Negative); Nitrate,Urine Negative (Negative); Protein,Urine Negative (Negative)
[2020-03-27 07:14] LABS: Barbiturates Screen,Urine Negative ng/ml (<200); Benzodiazepines Screen,Urine Negative ng/ml (<200)
[2020-03-27 07:15] LABS: Amphetamine/Metha Screen,Urine Negative ng/ml (<1000); Methadone Screen,Urine Negative ng/ml (<300)
[2020-03-27 07:16] LABS: Cannabinoid Screen,Urine Negative ng/ml (<50)
[2020-03-27 07:17] LABS: Cocaine Screen,Urine Negative ng/ml (<300); Opiate Screen,Urine Negative ng/ml (<300)
[2020-03-27 07:18] LABS: Phencyclidine Screen,Urine Negative ng/ml (<25)
[2020-03-27 07:24] LABS: Coronavirus 19 IgG Antibody Positive (Negative); Coronavirus 19 IgM Antibody Negative (Negative)
[2020-03-27 07:59] LABS: Bacteria,Urine 1+ /lpf; RBC,Urine Occasional #/hpf (0-3)
--- NOTE | 2020-03-27 10:10 | HMH.OBAPHP ---
OB - H&P: HPI Antepartum - History of Present Illness Chief complaint: Induction of Labor History of present illness: 19 yo at 38 4/7 for IOL secondary to oligiohydramnios at term complicated by longstanding chronic anemia and recurrent chlamydia cervicitis (both pregnancies) Covid 19 infection during (november 2019) without complication KELSEY 7.9 on ultrasound performed in office during visit, and scheduled for induction Irregular contractions, cervix 2/50% Normal movement [facility] History I have reviewed the patient's past medical history: Yes Medical History: Denies:: Anxiety, Depression, Diabetes Mellitus Type 1, Hepatitis, Hypertension, Migraine, MRSA, Seizures *Have you ever received a pneumonia vaccine?: No *Have you received a flu vaccine this season?: Yes Other Medical History: Reports: Anemia, Blood Transfusion Reaction Anesthesia experience/problems:: nac Other Surgeries: Yes: No Previous Surgery. No: Amputation: No Fractures: No - *Social History Smoking Status: Never smoker Alcohol Intake: never Substance Use Type: denies use *Occupational Status:: unemployed Housing: house Household Members: family *Travel in the last 8 weeks: None - Psychiatric History Pschychiatric History:: Denies:: Anxiety, Depression Family Hx:: Cancer [employer] history: Additional [employer] History (Gonorrhea, Chlamydia) : 2 Para: 1 Review of Systems - Review of Systems Review of systems:: pertinent systems reviewed and negative unless documented below - *Respiratory Denies cough, Denies shortness of breath - *Genitourinary Reports other (irregular contractions), Denies abnormal vaginal bleeding Meds Home Medications Medication Instructions Recorded Confirmed Type prenat.vits,felicity,[id number] 1 tab PO DAILY 12/19/19 03/27/20 History Ferrous Sulfate 325 mg PO DAILY 03/27/20 03/27/20 History NIFEdipine [Procardia] 20 mg PO Q6H 03/27/20 03/27/20 History Allergies Allergy/AdvReac Type Severity Reaction Status Date / Time No Known Allergies Allergy Verified 03/26/20 15:43 OB - H&P: Exam - Physical Exam Vital signs: Temp Pulse Resp BP Pulse Ox 98.2 F 99 H 18 131/88 98 03/27/20 05:17 03/27/20 05:17 03/27/20 05:17 03/27/20 05:17 03/27/20 05:17 - Constitutional no acute distress - Routine HEENT Exam Head: Present: normocephalic Eye: Absent: conjunctival icterus ENT: Absent: mucous membranes moist - Routine Neck Exam Present: supple - Routine Respiratory Exam Present: CTA bilaterally. Absent: respiratory distress - Routine Cardiovascular Exam Present: RRR - Routine Abdominal Exam Present: soft. Absent: tenderness, distended - Routine Exam Comments: cervix 3/50 - Routine Extremities Exam Present: edema (1+) - Routine Skin Exam Present: pallor. Absent: rash - Routine Neurological Exam Present: alert, oriented X3 - Routine Psychiatric Exam Present: normal affect OB - Results - Labs Labs: Short CBC 03/27/20 Range/Units 05:20 WBC 13.4 H (4.8-10.8) K/mm3 Hgb 9.7 L (12.2-16.2) g/dL Hct 30.5 L (37.0-47.0) % Plt Count 215 (142-424) K/mm3 Urine 03/27/20 Range/Units 05:05 Urine Color Yellow (Yellow) Urine Appearance Sl cloudy (Clear) Urine pH 7.0 (5.0-8.5) Ur Specific [place] 1.020 (1.005-1.030) Urine Protein Negative (Negative) Urine Glucose (UA) Negative (Negative) OB - A/P Antepartum (1) 38 weeks gestation of Status: Acute (2) Oligohydramnios Status: Acute (3) Anemia complicating Status: Acute (4) COVID-19 affecting , antepartum Problem details: 11/23/19 Status: Acute (5) Chlamydia trachomatis infection during Status: Acute - Additional Plan Additional Information:: Admission for induction of labor Pitocin augmentation begun Amniotomy with clear fluid; planning intern
--- NOTE | 2020-03-27 12:26 | HMH.ANESCL ---
[facility] Anesthesia Checklist - Patient Identification Patient Identification: Arm Band - Structural Data Admitted From: Inpatient Planned Operative Procedure/s: labor epidural Consent for Planned Operative Procedure(s) Verified: Yes Verified Documents: Surgical Consent, History and Physical - Additional verifications Anesthesia Reactions: No Hx Blood Transfusions: No Blood Transfusion Reaction: No - Airway Assessment C-Spine Mobility Assessed: Yes TMJ Mobility Assessed: Yes Dentition: Good Dentition - Neurological Assessment Level of Consciousness: Awake, Alert - Anesthesia Plan Anesthesia Risk discussed: Yes Anesthesia Plan: Verified ASA Class: II Anesthesia Type: Epidural [facility] History I have reviewed the patient's past medical history: Yes Medical History: Denies:: Anxiety, Depression, Diabetes Mellitus Type 1, Hepatitis, Hypertension, Migraine, MRSA, Seizures *Have you ever received a pneumonia vaccine?: No *Have you received a flu vaccine this season?: Yes Other Medical History: Reports: Anemia. Denies: Blood Transfusion Reaction Anesthesia experience/problems:: nac Other Surgeries: Yes: No Previous Surgery. No: Amputation: No Fractures: No - *Social History Smoking Status: Never smoker Alcohol Intake: never Substance Use Type: denies use *Occupational Status:: unemployed Housing: house Household Members: family *Travel in the last 8 weeks: None - Psychiatric History Pschychiatric History:: Denies:: Anxiety, Depression Family Hx:: Cancer Para: 1
--- NOTE | 2020-03-27 16:00 | HMH.LABNOT ---
Labor Note - Subjective: Date: 03/27/20 Time: 18:00 Comment:: regular contractions, sufficient amplitude with IUPC - Objective: NST:: Reactive Cervical Dilation:: 7-8 Effacement:: 75% Station: -1 - Fetus: monitoring type:: Internal - Assessment: Labor progressing?: Yes Patient Problems: All Active Problems (This Medical Record has been edited. Action required.) Oligohydramnios (Acute) 38 weeks gestation of (Acute) Anemia complicating (Acute) COVID-19 affecting , antepartum (Acute) Chlamydia trachomatis infection during (Acute) History of gonorrhea (Acute) History of chlamydia (Acute) (Acute) Chronic anemia (Acute) Acute blood loss anemia (Acute) - Plan: Comment:: Stop pitocin augmentation x 20 minutes and restart at 1/2 (15 mU) Repositioned onto right lateral side with peanut ball Continuous monitoring
--- NOTE | 2020-03-27 20:02 | HMH.DN ---
- Delivery Note Delivery Date:: 03/27/20 Delivery Time:: 17:33 Anesthesia Type: Epidural Was labor medically induced?: Yes Induction method: per pitocin protocol Gestational age (weeks): 38 delivered prior to 39 weeks?: Yes Justification for early elective delivery:: Oligohydraminos Infant Gender: Male at 1 minute: 9 at 5 minutes: 9 Delivery Procedure:: Spontaneous vaginal delivery of liveborn male infant over intact perineum. Delivery uncomplicated No nuchal cord or shoulder dystocia with delivery placed in IFEANYI with mother immediately after umbilical cord clamped/cut, with standard nursing assessment performed Infant Apgars: 9 & 9 Placenta spontaneously expressed and examined; noted to be complete/intact. Vulva, vagina, and cervix inspected; right labial laceration repaired with 2-0 vicryl EBL: 300 cc All sponge/needle/instrument counts correct at conclusion of procedure Disposition: Mom/baby stable to recovery in LDRP Laceration:: labial Placental Delivery Description: Spontaneous
[2020-03-28 07:12] LABS: Hematocrit 25.9 % (37.0-47.0); Hemoglobin 8.5 g/dL (12.2-16.2)
[2020-03-28 08:00] VITALS: BP 114/74; PULSE 91; RESP 20; TEMP 36.7; O2SAT 99
--- NOTE | 2020-03-28 09:34 | HMH.ACPN2 ---
Internal Medicine - PN: Subj *Date: 03/28/20 *Time: 09:34 (This is day #1. The patient is afebrile. Vital signs stable. Abdomen soft. Lochia normal. Uterine fundus involuting well. Bottlefeeding. Hemoglobin 8.5 g, but clinically stable. Impression: Chronic anemia. Stable.) Exam Vital signs and Labs for Last 24 Hours: Temp Pulse Resp BP Pulse Ox 98.2 F 99 H 18 131/88 98 03/27/20 05:17 03/27/20 05:17 03/27/20 05:17 03/27/20 05:17 03/27/20 05:17 Laboratory Results - last 24 hr 03/27/20 05:20: Blood Type O Positive, Antibody Screen Negative, Crossmatch (AHG) See Detail 03/28/20 06:50: Hgb 8.5 L, Hct 25.9 L I & O for Last 24 hours: Intake & Output 03/25/20 03/26/20 03/27/20 03/28/20 11:59 11:59 11:59 11:59 Output Total 400 / 400 Balance -400 / -400 Weight 186 lb Assessment and Plan (1) 38 weeks gestation of Status: Acute Category: Medical Code(s): Z3A.38 - 38 weeks gestation of (2) Oligohydramnios Status: Acute Category: Medical Code(s): O41.00X0 - Oligohydramnios, unspecified trimester, not applicable or unspecified (3) Anemia complicating Status: Acute Category: Medical Code(s): O99.019 - Anemia complicating , unspecified trimester (4) COVID-19 affecting , antepartum Problem details: 11/23/19 Status: Acute Category: Medical Code(s): O98.519 - Other viral diseases complicating , unspecified trimester; U07.1 - COVID-19 (5) Chlamydia trachomatis infection during Status: Acute Category: Medical Code(s): O98.319 - Other infections with a predominantly sexual mode of transmission complicating , unspecified trimester; A56.8 - Sexually transmitted chlamydial infection of other sites
[2020-03-28 16:00] VITALS: BP 116/65; PULSE 88; RESP 18; TEMP 36.7; O2SAT 98
[2020-03-28 19:55] VITALS: BP 114/71; PULSE 96; RESP 16; TEMP 36.7; O2SAT 98
[2020-03-29 05:09] VITALS: BP 110/72; PULSE 79; RESP 16; TEMP 36.7; O2SAT 99
[2020-03-29 08:02] VITALS: BP 119/71; PULSE 77; RESP 18; TEMP 36.8; O2SAT 99
--- NOTE | 2020-03-29 09:15 | HMH.ACPN2 ---
Internal Medicine - PN: Subj *Date: 03/29/20 *Time: 09:16 (This is day #2. The patient is afebrile. Her vital signs are stable. Abdomen soft. Lochia normal. Uterine fundus involuting well. Clinically stable with hemoglobin of 8.5 g. HH will be drawn prior to her discharge today.) Exam Vital signs and Labs for Last 24 Hours: Temp Pulse Resp BP Pulse Ox 98.2 F 77 18 119/71 99 03/29/20 08:02 03/29/20 08:02 03/29/20 08:02 03/29/20 08:02 03/29/20 08:02 I & O for Last 24 hours: Intake & Output 03/26/20 03/27/20 03/28/20 03/29/20 11:59 11:59 11:59 11:59 Output Total 400 / 400 Balance -400 / -400 Weight 186 lb Assessment and Plan (1) 38 weeks gestation of Status: Acute Category: Medical Code(s): Z3A.38 - 38 weeks gestation of (2) Oligohydramnios Status: Acute Category: Medical Code(s): O41.00X0 - Oligohydramnios, unspecified trimester, not applicable or unspecified (3) Anemia complicating Status: Acute Category: Medical Code(s): O99.019 - Anemia complicating , unspecified trimester (4) COVID-19 affecting , antepartum Problem details: 11/23/19 Status: Acute Category: Medical Code(s): O98.519 - Other viral diseases complicating , unspecified trimester; U07.1 - COVID-19 (5) Chlamydia trachomatis infection during Status: Acute Category: Medical Code(s): O98.319 - Other infections with a predominantly sexual mode of transmission complicating , unspecified trimester; A56.8 - Sexually transmitted chlamydial infection of other sites
--- NOTE | 2020-03-29 09:16 | HMH.DCSUM ---
General - General Admission date:: 03/27/20 Discharge date: 03/29/20 (This 19-year-old 2, now para 2, Ab0 white female was admitted at 38-3/7 weeks for induction due to oligohydramnios. She delivered spontaneously without complications. Her only issue was anemia and her hemoglobin on admission was 9.7 g (8.5 g ). The baby was an 9/9, 7 pound 4 ounce male infant, who is bottlefeeding, has been circumcised, and is done well. , the patient is done well. She is eating and ambulating, and has had a bowel movement. Her lochia is normal. Uterine fundus is involuting well. An H/H will be drawn prior to her discharge today. She is given appropriate instructions as to diet and exercise, and she is to return to Dr. Ochoa's office in 2 weeks for follow-up. She is going home on Tylenol and Motrin as needed for pain, and on vitamins and iron daily. She is Rh+ and rubella immune.) Hospital Course Rhogam Administration: Not Indicated Objective Vital signs: Temp Pulse Resp BP Pulse Ox 98.2 F 77 18 119/71 99 03/29/20 08:02 03/29/20 08:02 03/29/20 08:02 03/29/20 08:02 03/29/20 08:02 DS: Diagnosis - Discharge Diagnosis (1) 38 weeks gestation of Status: Acute (2) Oligohydramnios Status: Acute (3) Anemia complicating Status: Acute (4) COVID-19 affecting , antepartum Status: Acute Problem details: 11/23/19 (5) Chlamydia trachomatis infection during Status: Acute Discharge Plan - Patient Discharge Instructions Additional Instructions: nothing in the vagina for 6 weeks no heavy lifting or strenuous activity call dr. ochoa monday to get a 6 week pp follow up appt Patient Instructions: Depression, Hemorrhage, DI for Labor and Delivery, Vaginal , DI for Pre-eclampsia, Preventing the Spread of Coronavirus Discharge Instructions - Follow up Plan Follow up with: Niya Ochoa MD [Primary Care Provider] - Home Medications: Home Medications Medication Instructions Recorded Confirmed Type prenat.vits,felicity,ybz-pwxw-otblv 1 tab PO DAILY 12/19/19 03/27/20 History Ferrous Sulfate 325 mg PO DAILY 03/27/20 03/27/20 History NIFEdipine [Procardia] 20 mg PO Q6H 03/27/20 03/27/20 History Prescriptions/Medication Reconciliation: No Action prenat.vits,felicity,hlo-binl-uvcrc 1 tab PO DAILY NIFEdipine [Procardia] 20 mg PO Q6H Ferrous Sulfate 325 mg PO DAILY - Problem Reconciliation Problems Reviewed?: Yes
[2020-03-29 09:56] LABS: Hematocrit 26.8 % (37.0-47.0); Hemoglobin 8.6 g/dL (12.2-16.2)
== END 2020-03-29 11:37 | disposition home or self-care (01) | DRG 806 ==
PROVIDERS: Obstetrics & Gynecology; Admitting Provider Obstetrics & Gynecology; PCP Obstetrics & Gynecology; Visit Provider Obstetrics & Gynecology
DX: O41.03X0 Oligohydramnios, third trimester, not applicable or unspecified (principal); O98.82 Other maternal infectious and parasitic diseases complicating childbirth; Z37.0 Single live birth; Z3A.38 38 weeks gestation of pregnancy; O98.319 Other infections with a predominantly sexual mode of transmission complicating pregnancy, unspecified trimester; A56.09 Other chlamydial infection of lower genitourinary tract; O99.019 Anemia complicating pregnancy, unspecified trimester; D64.9 Anemia, unspecified
CPT/HCPCS: 59409; 36415; 59025; 80305; 81001; 85014; 85018; 85025; 86328; 86403; 86850; 87491; 87591; 96365; C1758; G0463; J0595

== ENCOUNTER → 2020-05-05 14:58 | Outpatient (CLI) | payer OTHER, SELFPAY ==
[2020-05-05 15:41] LABS: Basophils % 0.5 % (0.1-2.0); Eosinophils # 0.1 K/mm3 (0.0-0.4); Eosinophils % 1.7 % (0.1-12.0); Hematocrit 30.4 % (37.0-47.0); Hemoglobin 9.1 g/dL (12.2-16.2); Lymphocytes # 1.6 K/mm3 (0.7-4.5); Lymphocytes % 21.6 % (10-50); Mean Corpuscular HGB Conc 29.8 g/dL (31.8-35.4); Mean Corpuscular Hemoglobin 23.4 pg (27.0-31.2); Mean Corpuscular Volume 78.5 fl (81-99); Mean Platelet Volume 7.6 fl (7.4-10.4); Monocytes # 0.3 K/mm3 (0.1-1.0); Monocytes % 4.7 % (1.7-9.3); Neutrophils # 5.1 K/mm3 (1.8-7.8); Neutrophils % 71.5 % (37.0-80.0); Platelet Count 200 K/mm3 (142-424); Red Blood Count 3.87 M/mm3 (4.20-5.40); Red Cell Distribution Width 16.6 % (11.5-17.5); White Blood Count 7.1 K/mm3 (4.8-10.8)
== END ==
PROVIDERS: Visit Provider Obstetrics & Gynecology
DX: R58 Hemorrhage, not elsewhere classified (principal)
CPT/HCPCS: 36415; 85025

== ENCOUNTER → 2020-06-05 15:27 | Outpatient (CLI) | payer OTHER, SELFPAY ==
[2020-06-09 02:16] LABS: Neisseria gonorrhoeae, NAA Negative (Negative)
== END ==
PROVIDERS: Visit Provider Obstetrics & Gynecology
DX: Z86.19 Personal history of other infectious and parasitic diseases (principal)
CPT/HCPCS: 87491; 87591

== ENCOUNTER → 2021-01-29 12:03 | Outpatient (CLI) | payer OTHER, SELFPAY ==
[2021-01-29 12:36] LABS: Hematocrit 32.3 % (37.0-47.0); Hemoglobin 9.9 g/dL (12.2-16.2)
== END ==
PROVIDERS: Visit Provider Obstetrics & Gynecology
DX: N93.8 Other specified abnormal uterine and vaginal bleeding (principal)
CPT/HCPCS: 36415; 85014; 85018

== ENCOUNTER → 2021-03-18 13:37 | Outpatient (CLI) | payer OTHER, SELFPAY | PROVIDERS: Visit Provider Nurse Practitioner | DX: Z20.822 Contact with and (suspected) exposure to COVID-19 (principal) | CPT/HCPCS: C9803; U0003; U0005 ==

== ENCOUNTER → 2021-03-29 16:22 | Outpatient (CLI) | payer OTHER, SELFPAY | PROVIDERS: Visit Provider Nurse Practitioner | DX: Z20.822 Contact with and (suspected) exposure to COVID-19 (principal) | CPT/HCPCS: C9803; U0003; U0005 ==

== ENCOUNTER → 2021-04-09 12:16 | Outpatient (CLI) | payer OTHER, SELFPAY ==
[2021-04-10 15:17] LABS: Covid-19 Nasal PCR Sendout Lex NOT DETECTED
== END ==
PROVIDERS: Visit Provider Nurse Practitioner
DX: Z20.822 Contact with and (suspected) exposure to COVID-19 (principal)
CPT/HCPCS: C9803; U0004; U0005

== ENCOUNTER 2024-12-11 15:00 | Outpatient (CLI) | payer OTHER, SELFPAY ==
--- OUTSIDE RECORDS SUMMARY | 2024-12-12 10:53 | XMS_ITS | Clinical Summary ---
Author Organization Healthcare Address [address] [place] [address] Care Team Providers Care [employer] Reports Developer Name Role Phone Pcp, No Primary Care Provider Unavailabl e Allergies No known active allergies Medications methocarbamol (Robaxin) 500 MG tablet Take 1 tablet (500 mg) by mouth 4 (four) times a day if needed for muscle spasms for up to 10 days. 30 tablet 03/19/2023 Active Social History Tobacco Use Types Packs/Day Years Used Date Smoking Tobacco: Never Assessed Comments Unknown Sex and Gender Information Value Date Recorded Sex Assigned at Not on file Legal Sex Female 8:39 PM EDT Gender Identity Not on file Sexual Orientation Not on file Last Filed Vital Signs Vital Sign Reading Time Taken Comments Blood Pressure 116/75 03/20/2023 12:31 AM EST Pulse 78 03/20/2023 12:31 AM EST Temperature 37.1 C (98.7 F) 03/20/2023 12:31 AM EST Respiratory Rate 16 03/20/2023 12:31 AM EST Oxygen Saturation 100% 03/20/2023 12:31 AM EST Inhaled Oxygen Concentration - - Weight 70.8 kg (156 lb 1.4 oz) 03/19/2023 8:25 P M EST Height 172.7 cm (5' 8 ) 03/19/2023 8:25 PM EST Body Mass Index 23.73 03/19/2023 8:25 PM EST Plan of Treatment Health Maintenance Due Date Last Done Comments [facility]-Depression Screening 1998 [facility]-Infant/Child/Adol SDOH Screenings 1998 [facility]- SDOH Screenings 2016 [facility]-Adult SDOH Screenings 2016 [facility]-Pap Smear 08/26/2019 [facility]-DTaP,Tdap,and Td Vaccines (7 - Td or Tdap) 10/15/2019 10/14/2009, 06/03/2003, 01/23/2002, Additional history exists [facility]-NULHN-25 Vaccine ( - season) 2024 [facility]-Influenza Vaccine (#1) 2024 02/23/2017 [facility]-Zoster Vaccines (1 of 2) 2048 02/23/2017, 06/03/2003 [facility]-Hepatitis B Vaccines Completed 002, 05/18/1999, 1998 [facility]-HIB Vaccines Completed 01/23/2002, 11/1999, 05/18/1999, Additional history exists [facility]-IPV Vaccines Aged Out 07/09/2003, 11/1999, 05/18/1999, Additional history exists No longer eligible based on patient's age to complete this topic HPV Vaccines Completed 02/23/2017, 10/14/2009 [facility]-Hepatitis A Vaccines Completed 02/23/2017, 06/2009 [facility]-Varicella Vaccines Completed 02/23/2017, 2003 [facility]-HIV Screening Completed 03/19/2023 [facility]-Hepatitis C Screening Completed 03/19/2023, [facility]-Pneumococcal Vaccine: Pediatrics (0 to 5 Years) and At-Risk Patients (6 to 49 Years) Aged Out No longer eligible based on patient's age to complete this topic [facility]-Rotavirus Vaccines Aged Out No lo nger eligible based on patient's age to complete this topic Procedures Procedure Name Priority Date/Time Associated Diagnosis Comments HEPATITIS C ANTIBODY - ED W/REFLEX TO HCV QUANT PCR STAT 03/19/2023 9:24 PM EST ED HIV 1/2 ANTIBODY/ANTIGEN SCREEN WITH REFLEX TO HIV I/II DIFFERENTIATION STAT 03/19/2023 9:24 PM EST from Last 3 Months or Most Recently Relevant to Health Maintenance Results * ED HIV 1/2 Antibody/Antigen Screen w/Reflex to HIV 1/2 Differentiation (03/19/2023 9:24 PM EST) HIV 1 & 2 Antibody/Antigen Screen Non Reactive Non Reactive 03/19/2023 10:25 PM EST [facility] Comment:Screening for HIV 1 & 2 antibodies, and P24 antigen is NONREACTIVE. No confirmatory testing is required. Blood Venous blood specimen / Unknown Venipuncture / Unknown 03/19/2023 9:24 PM EST 03/19/2023 9:43 PM EST us Mahendra He MD LAB BLOOD ORDERABLES Final Resul t [facility] [address] [place] [address] * Hepatitis C Antibody - ED (03/19/2023 9:24 PM EST) [facility] Hepatitis C Antibody Negative Negative 03/19/2023 10:36 PM EST [facility] Blood Venous blood specimen / Unknown Venipuncture / Unknown 03/19/2023 9:24 PM EST 03/19/2023 9:43 PM EST us Mahendra He MD LAB BLOOD ORDERABLES Final Resul t Performing Organization Address City/[facility] Co de Phone Number [facility] [address] [place] [address] from Last 3 Months or Most Recently Relevant to Health Maintenance Insurance [facility] MEDICAID Care Teams Microstrategy Reports Developer Relationship Specialty Start Date End Date Pcp, No [address] [place] [address] PCP - General Family Medicine 03/19/23
== END 2024-12-11 23:59 | disposition home or self-care (01) ==
LOC: LAB.DROPOF 12-12 10:49
PROVIDERS: PCP Nurse Practitioner Obstetrics & Gynecology; Visit Provider Nurse Practitioner Obstetrics & Gynecology
DX: Z11.3 Encounter for screening for infections with a predominantly sexual mode of transmission (principal); N89.8 Other specified noninflammatory disorders of vagina
CPT/HCPCS: 87491; 87529; 87591; 87661; 87798; 87801